=== PATIENT | female | born 1990 | race Caucasian/White ===

== ENCOUNTER 2020-03-05 17:41 | Emergency (ER) | payer SELFPAY ==
[~2020-03-05] VITALS: Ht 157.5 cm; Wt 77.6 kg
[2020-03-05 17:41] VITALS: BP_SYST 109
[2020-03-05 18:49] VITALS: BP_SYST 117
== END 2020-03-05 18:49 | disposition home or self-care (01) ==
LOC: SED 17:41
DX: R10.9 Unspecified abdominal pain (principal); R11.10 Vomiting, unspecified
CPT/HCPCS: 99283